=== PATIENT | female | born 1935 | race Caucasian/White ===

== ENCOUNTER 2016-10-27 09:11 | Outpatient (CLI) | payer MEDICARE, OTHER ==
[2016-10-27 10:56] LABS: #Eosinphils 0.1 thou/uL (0.0-0.7); #Lymphocytes 1.8 thou/uL (1.20-3.40); #Monocytes 0.4 thou/uL (0.11-0.59); #Neutrophils 2.3 thou/uL (1.40-6.50); %Basophils 0.7 % (0.0-1.0); %Eosinophils 2.7 % (0.0-10.0); %Monocytes 7.8 % (0.0-10.0); Mean Platelet Volume 9.6 fL (7.4-10.4); White Blood Cell (WBC) Count 4.6 thou/uL (4.8-10.8)
[2016-10-27 11:11] LABS: ALT (SGPT) 21 U/L (0-55); AST (SGOT) 29 U/L (5-34); Alkaline Phosphatase 47 U/L (40-150); Anion Gap 13 mmol/L (10-20); BUN (Urea Nitrogen) 13 mg/dL (9.8-20.1); Bilirubin, Total 0.8 mg/dL (0.2-1.2); Calc. Creatinine Clearance 0 mL/min (70-130); Calcium 9.5 mg/dL (7.8-10.44); Carbon Dioxide 29 mmol/L (23-31); Chloride 105 mmol/L (98-107); Estimated GFR-MDRD 59; Globulin 2.6 g/dL (2.4-3.5); LDL Cholesterol, Calculated 61 mg/dL; Protein, Total 6.6 g/dL (5.8-8.1)
[2016-10-27 11:22] LABS: Hemoglobin A1c 5.9 % (4.0-6.0)
== END 2016-10-27 09:12 ==
LOC: HPCALD 09:11
PROVIDERS: ATTEND Family Medicine
DX: E78.2 Mixed hyperlipidemia (principal); E13.9 Other specified diabetes mellitus without complications; I10 Essential (primary) hypertension
CPT/HCPCS: 36415; 80053; 80061; 83036; 84443; 85025

== ENCOUNTER 2017-02-09 21:19 | Emergency (ER) | payer MEDICARE, OTHER ==
[2017-02-09] MEDS ORDERED: Lidocaine 1% 20 ML MDV ONE (21:34)
[2017-02-09] MEDS ORDERED: Bacitracin Zinc 1 Packet ONE (22:03)
[2017-02-09] MEDS ORDERED: Adacel (T-DAP) 0.5 ML VIAL ONE (22:09)
[2017-02-09] MEDS ORDERED: Sulfameth/Trimethoprim DS 800-160mg TAB ONE (22:10)
== END 2017-02-09 22:17 | disposition home or self-care (01) ==
LOC: BURERS 21:19
DX: S61.411A Laceration without foreign body of right hand, initial encounter (principal); E11.9 Type 2 diabetes mellitus without complications; E78.5 Hyperlipidemia, unspecified; E78.00 Pure hypercholesterolemia, unspecified; I10 Essential (primary) hypertension; W20.8XXA Other cause of strike by thrown, projected or falling object, initial encounter; Y92.009 Unspecified place in unspecified non-institutional (private) residence as the place of occurrence of the external cause
CPT/HCPCS: 12004; 90471; 90715; J2001

== ENCOUNTER 2017-04-28 10:24 | Outpatient (CLI) | payer MEDICARE, OTHER ==
[2017-04-28 11:41] LABS: #Basophils 0.1 thou/uL (0.0-0.2); #Eosinphils 0.1 thou/uL (0.0-0.7); #Lymphocytes 2.1 thou/uL (1.20-3.40); #Monocytes 0.3 thou/uL (0.11-0.59); #Neutrophils 2.4 thou/uL (1.40-6.50); %Basophils 1.1 % (0.0-1.0); %Eosinophils 2.9 % (0.0-10.0); %Lymphocytes 41.6 % (21.0-51.0); %Monocytes 5.9 % (0.0-10.0); %Neutrophils 48.6 % (42.0-75.0); Hemoglobin 13.9 g/dL (12.0-16.0); Mean Corpuscular HGB CONC 32.5 g/dL (32.0-36.0); Mean Corpuscular Hemoglobin 31.5 pg (27.0-31.0); Mean Corpuscular Volume 96.9 fl (81.0-99.0); Mean Platelet Volume 10.1 fL (7.4-10.4); Platelet Count 131 thou/uL (130-400); RBC Distribution Width 12.3 % (11.5-14.5)
[2017-04-28 11:54] LABS: ALT (SGPT) 19 U/L (8-55); AST (SGOT) 29 U/L (5-34); Albumin 4.1 g/dL (3.4-4.8); Alkaline Phosphatase 54 U/L (40-150); Anion Gap 14 mmol/L (10-20); BUN (Urea Nitrogen) 14 mg/dL (9.8-20.1); Bilirubin, Total 0.9 mg/dL (0.2-1.2); Calc. Creatinine Clearance 0 mL/min (70-130); Calcium 9.8 mg/dL (7.8-10.44); Carbon Dioxide 29 mmol/L (23-31); Cardiac Risk 2.2 (Less than 4.5); Chloride 104 mmol/L (98-107); Cholesterol 131 mg/dl (< 200 Desired); Estimated GFR-MDRD 64; Globulin 2.2 g/dL (2.4-3.5); Glucose 87 mg/dL (83-110); HDL Cholesterol 59 mg/dL (>60 Neg Risk); Hemoglobin A1c 5.9 % (4.0-6.0); LDL Cholesterol, Calculated 58 mg/dL; Protein, Total 6.3 g/dL (6.0-8.3); Sodium 143 mmol/L (136-145); Triglycerides 69 mg/dL (Less than 150)
== END 2017-04-28 10:25 | disposition home or self-care (01) ==
LOC: HPCALD 10:24
PROVIDERS: ATTEND Family Medicine
DX: E13.9 Other specified diabetes mellitus without complications (principal); E78.00 Pure hypercholesterolemia, unspecified; I10 Essential (primary) hypertension
CPT/HCPCS: 36415; 80053; 80061; 83036; 84443; 85025

== ENCOUNTER 2017-08-19 14:58 | Emergency (ER) | payer MEDICARE, OTHER ==
--- NOTE | 2017-08-19 16:07 | RAD ---
PORTABLE CHEST ONE VIEW: 08/19/2017 at 3:09 p.m. HISTORY: Fall. Coronary artery disease. Diabetes. FINDINGS: Comparison is made with the exam of 03/14/2014. There are changes of median sternotomy. The heart size is normal. The lungs are expanded without fo jc areas of consolidation, pneumothorax, or pleural effusions. IMPRESSION: No radiographic evidence of acute cardiopulmonary process. POS: [facility]
== END 2017-08-19 15:29 | disposition home or self-care (01) ==
LOC: BURERS 14:58
DX: Z04.3 Encounter for examination and observation following other accident (principal); E11.9 Type 2 diabetes mellitus without complications; E78.5 Hyperlipidemia, unspecified; I10 Essential (primary) hypertension; W19.XXXA Unspecified fall, initial encounter
CPT/HCPCS: 71010

== ENCOUNTER 2017-09-16 19:13 | Emergency (ER) | payer MEDICARE, OTHER | END 2017-09-16 19:40 | disposition home or self-care (01) | LOC: BURERS 19:13 | DX: I10 Essential (primary) hypertension (principal); E11.9 Type 2 diabetes mellitus without complications; E78.5 Hyperlipidemia, unspecified | CPT/HCPCS: 99283 ==

== ENCOUNTER 2018-01-23 16:32 | Emergency (ER) | payer MEDICARE, OTHER ==
[2018-01-23 17:11] LABS: #Basophils 0.1 thou/uL (0.0-0.2); #Eosinphils 0.2 thou/uL (0.0-0.7); #Lymphocytes 2.1 thou/uL (1.20-3.40); #Monocytes 0.4 thou/uL (0.11-0.59); %Basophils 1.3 % (0.0-1.0); %Eosinophils 3.2 % (0.0-10.0); %Lymphocytes 36.3 % (21.0-51.0); %Monocytes 6.3 % (0.0-10.0); %Neutrophils 52.8 % (42.0-75.0); Hemoglobin 12.9 g/dL (12.0-16.0); Mean Corpuscular HGB CONC 35.3 g/dL (32.0-36.0); Mean Corpuscular Volume 87.9 fl (81.0-99.0); Mean Platelet Volume 8.7 fL (7.4-10.4); Platelet Count 168 thou/uL (130-400); RBC Distribution Width 11.6 % (11.5-14.5); Red Blood Cell (RBC) Count 4.15 mill/uL (4.20-5.40); White Blood Cell (WBC) Count 5.7 thou/uL (4.8-10.8)
[2018-01-23 17:27] LABS: CKMB 1.5 ng/mL (0-6.6); Troponin I Less than 0.010 ng/mL (< 0.028)
[2018-01-23 17:28] LABS: ALT (SGPT) 19 U/L (8-55); AST (SGOT) 28 U/L (5-34); Albumin 3.8 g/dL (3.4-4.8); Alkaline Phosphatase 77 U/L (40-150); Anion Gap 14 mmol/L (10-20); BUN (Urea Nitrogen) 20 mg/dL (9.8-20.1); Bilirubin, Total 0.4 mg/dL (0.2-1.2); Calc. Creatinine Clearance 0 mL/min (70-130); Calcium 9.9 mg/dL (7.8-10.44); Carbon Dioxide 27 mmol/L (23-31); Chloride 102 mmol/L (98-107); Estimated GFR-MDRD 59; Glucose 126 mg/dL (83-110); Lipase 30 U/L (8-78); Potassium 4.8 mmol/L (3.5-5.1); Protein, Total 6.8 g/dL (6.0-8.3); Sodium 138 mmol/L (136-145)
--- NOTE | 2018-01-23 18:37 | RAD ---
PORTABLE CHEST: 01/23/18 An AP portable film at 1649 is compared with a 03/14/14 study. A prior CABG is noted. The heart size is normal and there is no vascular congestion or edema. The aor ta appears normal in size. There are no effusions or lobar infiltrates. IMPRESSION: No acute thoracic finding. POS: [facility]
--- NOTE | 2018-01-23 22:34 | CT ---
CT AORTIC DISSECTION WITH CONTRAST 01/23/18 CT angio of the chest and upper abdomen was performed for evaluation of a possible aortic dissection in this patient with upper back pain. Comparison is made with a 12/09/14 CT of the chest, abdomen and pelvis. After a bolus of IV contrast, arterial phase images were obtained from the base of the neck through t he aortic bifurcation. Coronal and sagittal reconstructions were later done. The patient's aorta appears intact with no sign of dissection or aneurysm. The ascending aorta is mil dly dilated, measuring about 3.6 cm in diameter. coronary arteries fill, but I cannot assess calcific ations in them. There appears to be a prior CABG with patent grafts. There is no pericardial effusion evident. No mass or adenopathy was seen in the mediastinum. The lungs show no mass but there are some patchy infiltrates in the superior portion of the right low er lobe. This is a new finding compared to the prior study. The lungs are otherwise clear. The abdominal aorta shows no aneurysm or dissection. The celiac, SMA and FARHAD all fill from the abdomi nal aorta. Some arteriosclerotic change is seen around the takeoff of the renal arteries, though both fill abundantly with contrast. The patient has known hepatic masses which have been felt to possibly be hemangiomas in the past. The largest is in the inferior right lobe and has grown in size since 2015, now measuring 4.9 cm in diam eter. It does appear to fill with contrast centrally which is more likely a hemangioma than not, even though it has down over time. A second mass immediately superior to it is more difficult to measure in size due to the phase of contrast. Seen a little better on this study is a 1.6 cm mass in the dome of the liver which in retrospect was present in 2015. It has changed little. The spleen, pancreas, a drenal glands, gallbladder, and kidneys showed no acute findings. There were no bowel abnormalities i n the areas scanned. No free air or free fluid was seen. Finally, degenerative changes are present th roughout the spine. IMPRESSION: 1. No evidence of aortic dissection or aneurysm. 2. Patchy infiltrates in the superior portions of the right lower lobe. 3. Hepatic masses as before, the largest is in the inferior right lobe and has grown to 4.9 cm i n diameter since 2015. There are at least three total. The imaging characteristics of the largest are suggestive of hemangioma, even through it has grown over time. POS: [facility]
== END 2018-01-23 18:38 | disposition short-term general hospital (02) ==
LOC: BURERS 16:32
DX: R07.9 Chest pain, unspecified (principal); E78.5 Hyperlipidemia, unspecified; I12.9 Hypertensive chronic kidney disease with stage 1 through stage 4 chronic kidney disease, or unspecified chronic kidney disease; E11.22 Type 2 diabetes mellitus with diabetic chronic kidney disease; N18.9 Chronic kidney disease, unspecified; Z79.899 Other long term (current) drug therapy; Z79.82 Long term (current) use of aspirin
CPT/HCPCS: 36415; 71045; 71275; 80053; 82553; 83690; 83880; 84484; 85025; 85379; 93005

== ENCOUNTER 2018-05-26 17:42 | Emergency (ER) | payer MEDICARE, OTHER ==
[2018-05-26 18:35] LABS: #Eosinphils 0.2 thou/uL (0.0-0.7); #Lymphocytes 2.1 thou/uL (1.20-3.40); #Monocytes 0.4 thou/uL (0.11-0.59); #Neutrophils 2.4 thou/uL (1.40-6.50); %Eosinophils 3.1 % (0.0-10.0); %Lymphocytes 41.7 % (21.0-51.0); %Monocytes 7.1 % (0.0-10.0); %Neutrophils 47.2 % (42.0-75.0); Hemoglobin 12.9 g/dL (12.0-16.0); Large Platelets SLIGHT; MDiff Complete? YES; Mean Corpuscular HGB CONC 32.4 g/dL (32.0-36.0); Mean Corpuscular Hemoglobin 30.2 pg (27.0-31.0); Mean Corpuscular Volume 93.1 fL (78.0-98.0); Mean Platelet Volume 12.2 fL (7.4-10.4); Platelet Count 154 thou/uL (130-400); RBC Distribution Width 12.4 % (11.5-14.5); Red Blood Cell (RBC) Count 4.28 mill/uL (4.20-5.40); White Blood Cell (WBC) Count 5.1 thou/uL (4.8-10.8)
--- NOTE | 2018-05-26 18:37 | RAD ---
FRONTAL RADIOGRAPH CHEST 05/26/18 COMPARISON: 01/23/18 HISTORY: Chest pain. FINDINGS: Stable midline sternotomy wires and mediastinal clips are present. Increased linear interstitial dens ity is noted, stable. No pneumothorax, pleural fluid, focal consolidation or alveolar edema. Evaluati on of the upper lobes is slightly limited on the basis of technique. IMPRESSION: Stable appearance of the chest - no acute findings. POS: [facility]
[2018-05-26 18:41] LABS: ALT (SGPT) 17 U/L (8-55); AST (SGOT) 24 U/L (5-34); Albumin 3.7 g/dL (3.4-4.8); Alkaline Phosphatase 64 U/L (40-150); Anion Gap 11 mmol/L (10-20); BUN (Urea Nitrogen) 15 mg/dL (9.8-20.1); Bilirubin, Total 0.5 mg/dL (0.2-1.2); Calc. Creatinine Clearance 0 mL/min (70-130); Calcium 9.7 mg/dL (7.8-10.44); Carbon Dioxide 30 mmol/L (23-31); Chloride 103 mmol/L (98-107); Estimated GFR-MDRD 65; Globulin 2.5 g/dL (2.4-3.5); Glucose 130 mg/dL (83-110); Potassium 3.9 mmol/L (3.5-5.1); Protein, Total 6.2 g/dL (6.0-8.3); Sodium 140 mmol/L (136-145)
[2018-05-26 18:42] LABS: CKMB 1.5 ng/mL (0-6.6); Troponin I Less than 0.010 ng/mL (< 0.028)
== END 2018-05-26 18:58 | disposition home or self-care (01) ==
LOC: BURERS 17:42
DX: I10 Essential (primary) hypertension (principal); E78.5 Hyperlipidemia, unspecified; F41.9 Anxiety disorder, unspecified
CPT/HCPCS: 71045; 80053; 82553; 83880; 84484; 85025; 93005

== ENCOUNTER 2018-07-14 22:42 | Emergency (ER) | payer MEDICARE, OTHER ==
[2018-07-14 23:14] LABS: #Eosinphils 0.1 thou/uL (0.0-0.7); #Lymphocytes 2.8 thou/uL (1.20-3.40); #Monocytes 0.4 thou/uL (0.11-0.59); #Neutrophils 2.8 thou/uL (1.40-6.50); %Basophils 0.8 % (0.0-1.0); %Eosinophils 2.3 % (0.0-10.0); %Lymphocytes 46.1 % (21.0-51.0); %Monocytes 5.6 % (0.0-10.0); %Neutrophils 45.2 % (42.0-75.0); Hemoglobin 13.6 g/dL (12.0-16.0); Mean Corpuscular HGB CONC 33.4 g/dL (32.0-36.0); Mean Corpuscular Hemoglobin 30.1 pg (27.0-31.0); Mean Corpuscular Volume 90.1 fL (78.0-98.0); Platelet Count 138 thou/uL (130-400); Red Blood Cell (RBC) Count 4.53 mill/uL (4.20-5.40); White Blood Cell (WBC) Count 6.2 thou/uL (4.8-10.8)
--- NOTE | 2018-07-14 23:16 | RAD ---
ONE VIEW CHEST: 07/14/18 COMPARISON: 05/26/18. HISTORY: Pain. FINDINGS: There are sternotomy wire and mediastinal clips. Normal cardiac silhouette. Pulmonary vessels and hil um are normal. Costophrenic angles are clear. Chronic changes, without consolidation or mass. Hyperin flation. No pneumothorax or osseous abnormalities. IMPRESSION: Atherosclerosis. No acute cardiopulmonary process. POS: [facility]
[2018-07-14 23:28] LABS: ALT (SGPT) 19 U/L (8-55); AST (SGOT) 25 U/L (5-34); Alkaline Phosphatase 69 U/L (40-150); Anion Gap 13 mmol/L (10-20); BUN (Urea Nitrogen) 17 mg/dL (9.8-20.1); Bilirubin, Total 0.9 mg/dL (0.2-1.2); CK (CPK) 84 U/L (29-168); Calc. Creatinine Clearance 0 mL/min (70-130); Calcium 10.1 mg/dL (7.8-10.44); Carbon Dioxide 31 mmol/L (23-31); Chloride 102 mmol/L (98-107); Estimated GFR-MDRD 66; Globulin 2.8 g/dL (2.4-3.5); Glucose 97 mg/dL (83-110); Lipase 124 U/L (8-78); Potassium 3.4 mmol/L (3.5-5.1); Protein, Total 6.8 g/dL (6.0-8.3); Sodium 143 mmol/L (136-145)
[2018-07-14 23:29] LABS: CKMB 1.4 ng/mL (0-6.6); Troponin I 0.027 ng/mL (< 0.028)
== END 2018-07-15 00:12 | disposition short-term general hospital (02) ==
LOC: BURERS 22:42
DX: R07.2 Precordial pain (principal); I10 Essential (primary) hypertension; E78.5 Hyperlipidemia, unspecified; F41.9 Anxiety disorder, unspecified; Z79.899 Other long term (current) drug therapy; Z87.442 Personal history of urinary calculi; Z79.82 Long term (current) use of aspirin
CPT/HCPCS: 71045; 80053; 82550; 82553; 83690; 84484; 85025; 93005

== ENCOUNTER 2020-03-17 10:45 | Outpatient (CLI) | payer MEDICARE, OTHER ==
--- NOTE | 2020-03-17 19:03 | CT ---
CT ABDOMEN AND PELVIS WITH CONTRAST: 03/17/20 Comparison is made with a 01/23/18 CT. That study showed a mass in the lower right portion of the liver measuring 4.8 cm in size. It had vidya wn since the prior study, though it had some characteristics of hemangioma, but not completely. Today's study shows that that same mass is still present and still measures 4.8 cm, however, there is now a new large mass density in the central portion of the right lobe that was not present before. I t easily measures over 8 cm in size. There is also a small amount of fluid cloaking the outside of th e liver. The appearance is now suggestive of neoplasm, most likely metastatic disease. It is curious that the lower right lobe mass has not changed at all in size over time. The lung bases are clear. The patchy infiltrate seen in 2018 has resolved. Some minor atelectasis is suggested in the left lower lobe today. The patient may have suffered a fracture of one of the lower left ribs since the 2018 exam. Dense coronary calcifications are seen in this patient. The spleen, pancreas, adrenal glands, and kidneys showed no acute findings. Some nonobstructing renal calculi are present. The aorta shows calcification but no aneurysm. The bowel shows no distention o r sign of obstruction. There is no free air present in the abdomen. CT of the pelvis shows no pelvic masses, free fluid of concern, or inflammatory change. There are deg enerative changes throughout the bones in this patient but no bony destructive lesions were appreciat ed. IMPRESSION: 1. Large mass in the central portion of the right lobe of the liver. This appearance is suggesti ve of neoplasm, particularly metastatic disease. The rounded mass in the lower portion of the right l obe has not changed in size and once again measures the same 4.8 cm as before. 2. No acute findings in the abdomen or pelvis otherwise. 3. Nonobstructing renal calculi. 3. Coronary arteriosclerosis. Code T POS: [facility]
== END 2020-03-17 10:46 | disposition home or self-care (01) ==
LOC: BURCT 10:45
PROVIDERS: ATTEND Family Medicine
DX: R74.8 Abnormal levels of other serum enzymes (principal); K76.89 Other specified diseases of liver; N20.0 Calculus of kidney; I25.10 Atherosclerotic heart disease of native coronary artery without angina pectoris
CPT/HCPCS: 74177